=== PATIENT | female | born 1960 | race Caucasian/White ===

== ENCOUNTER → 2017-03-28 | Outpatient (CLI) | payer MEDICARE ==
[~2017-03-28] MED LIST: ADVAIR 250/501 EA INH; BACTRIM DS 8001 TA1 PO; BISOPROLOL FUMA1 TA3 PO; BISOPROLOL5 MG PO; CEFUROXIME AXE250 MG PO; CIPRO500 MG PO; CLOPIDOGREL75 MG PO; FLEXERIL10 MG PO; FLOMAX0.4 MG PO; FLUTICASON0.05 MG/A1 NAS; GABAPENTIN300 MG PO; MEDROL DOSEPAK4 MG PO; METFORMIN500 MG PO; NIX CREME RINSE60 M1 PO; OYSTER SHELL C500 M2 PO; PERCOCET 325 MG1 TA2 PO; PRAVACHOL40 MG PO; PREDNISONE50 MG PO; PYRIDIUM100 MG PO; PYRIDIUM200 M1 PO; ULTRAM50 MG PO; VENTOLIN H0.09 MG/AC INH; VITAMIN D3 PO; VITAMIN D400 I1 PO; WELLBUTRIN SR150 MG PO; ZOFRAN ODT4 MG SL
== END | disposition home or self-care (01) ==
LOC: CP 11:00
DX: I69.30 Unspecified sequelae of cerebral infarction (principal)

== ENCOUNTER 2017-04-24 17:15 | Emergency (ER) | payer MEDICARE ==
[~2017-04-24] VITALS: Wt 122.5 kg
[2017-04-24 17:59] LABS: BILIRUBIN NEGATIVE (NEGATIVE); BLOOD 3+ (NEGATIVE); CLARITY SL CLOUDY (CLEAR); COLOR YELLOW (YELLOW); GLUCOSE NEGATIVE (NEGATIVE); KETONE NEGATIVE (NEGATIVE); LEUKO ESTERASE 1+ (NEGATIVE); NITRITE NEGATIVE (NEGATIVE); PROTEIN NEGATIVE (NEGATIVE); SPECIFIC GRAVITY 1.025 (1.005-1.030); UROBILINOGEN 0.2 E.U./dl (0.2-1.0)
[2017-04-24 18:05] LABS: BASO # 0.1 10*3/uL (0.0-0.1); BASO % 0.4 % (0.0-1.0); EOS # 0.1 10*3/uL (0.0-0.4); EOS % 0.7 % (1.0-4.0); HEMATOCRIT 44.1 % (37.0-47.0); HEMOGLOBIN 13.7 g/dl (12.0-16.0); IG # 0.1 10*3/uL (0.0-0.1); LYMPH # 1.9 10*3/uL (1.3-4.4); LYMPH % 11.7 % (27.0-41.0); MEAN CELL VOLUME 88.6 fl (81.0-99.0); MEAN CORPUSCULAR HGB 27.5 pg (27.0-31.0); MEAN CORPUSCULAR HGB CONC 31.1 g/dl (33.0-37.0); MEAN PLATELET VOLUME 10.2 fl (9.6-12.3); MONO # 1.2 10*3/uL (0.1-1.0); MONO % 7.5 % (3.0-9.0); NEUT # 12.6 10*3/uL (2.3-7.9); NEUT % 79.4 % (47.0-73.0); PLATELET COUNT AUTOMATED 470 10*3/uL (130-400); RED BLOOD COUNT 4.98 10*6/uL (4.10-5.10); RED CELL DISTRI WIDTH 15.7 % (0-14.5); WHITE BLOOD COUNT 15.8 10*3/uL (4.8-10.8)
[2017-04-24 18:05] LABS: BACTERIA 4+; RBC 21-30 rbc/hpf (0-2); URINE REFLEX COMMENT YES (NO)
[2017-04-24 18:19] LABS: ALBUMIN 3.1 gm/dl (3.1-4.5); BILIRUBIN, TOTAL 0.3 mg/dl (0.2-1.0); POTASSIUM 4.1 mmol/L (3.5-5.1); TOTAL PROTEIN 7.1 gm/dL (6.4-8.2)
[2017-04-24] MEDS ORDERED: LEVOFLOXACIN500 MG PO (19:41)
[2017-04-24] MEDS ORDERED: ZOFRAN ODT4 MG SL (19:41)
[2017-04-24] MEDS ORDERED: FLOMAX0.4 MG PO (19:41)
[2017-04-24] MEDS ORDERED: PERCOCET 325 MG1 TA2 PO (19:41)
== END 2017-04-24 19:57 | disposition home or self-care (01) ==
LOC: ED 17:15
PROVIDERS: Registered Nurse
DX: N20.0 Calculus of kidney (principal); Z87.442 Personal history of urinary calculi; F17.200 Nicotine dependence, unspecified, uncomplicated; Z90.49 Acquired absence of other specified parts of digestive tract

== ENCOUNTER → 2017-05-10 | Outpatient (CLI) | payer MEDICARE ==
[~2017-05-10] MED LIST changes: +LEVOFLOXACIN500 MG PO
== END | disposition home or self-care (01) ==
LOC: RAD 10:15
DX: N20.0 Calculus of kidney (principal); Z96.0 Presence of urogenital implants; Z90.49 Acquired absence of other specified parts of digestive tract; Z90.89 Acquired absence of other organs; Z90.710 Acquired absence of both cervix and uterus

== ENCOUNTER → 2017-05-24 | Outpatient (CLI) | payer MEDICARE ==
[2017-05-24 12:58] LABS: BILIRUBIN 2+ (NEGATIVE); BLOOD 3+ (NEGATIVE); CLARITY CLOUDY (CLEAR); COLOR BROWN (YELLOW); GLUCOSE NEGATIVE (NEGATIVE); KETONE TRACE (NEGATIVE); NITRITE POSITIVE (NEGATIVE); PH 6.5 (5.0-9.0); PROTEIN 3+ (NEGATIVE); SPECIFIC GRAVITY >= 1.030 (1.005-1.030)
[2017-05-24 13:06] LABS: RBC TNTC rbc/hpf (0-2)
[2017-05-24 13:08] LABS: BACTERIA 1+; CALCIUM OXALATE CRYSTALS 1+; WBC 16-20 wbc/hpf (0-5)
[2017-05-24 13:09] LABS: LEUKO ESTERASE 1+ (NEGATIVE)
[2017-05-24 13:14] LABS: BASO # 0.1 10*3/uL (0.0-0.1); BASO % 0.7 % (0.0-1.0); EOS # 0.3 10*3/uL (0.0-0.4); EOS % 2.7 % (1.0-4.0); HEMATOCRIT 40.7 % (37.0-47.0); HEMOGLOBIN 12.8 g/dl (12.0-16.0); IG # 0.1 10*3/uL (0.0-0.1); LYMPH # 2.6 10*3/uL (1.3-4.4); LYMPH % 22.8 % (27.0-41.0); MEAN CELL VOLUME 87.7 fl (81.0-99.0); MEAN CORPUSCULAR HGB 27.6 pg (27.0-31.0); MEAN CORPUSCULAR HGB CONC 31.4 g/dl (33.0-37.0); MEAN PLATELET VOLUME 10.4 fl (9.6-12.3); MONO # 0.6 10*3/uL (0.1-1.0); MONO % 4.8 % (3.0-9.0); NEUT # 7.8 10*3/uL (2.3-7.9); NEUT % 68.5 % (47.0-73.0); PLATELET COUNT AUTOMATED 465 10*3/uL (130-400); RED BLOOD COUNT 4.64 10*6/uL (4.10-5.10); RED CELL DISTRI WIDTH 15.1 % (0-14.5); WHITE BLOOD COUNT 11.4 10*3/uL (4.8-10.8)
[2017-05-24 13:42] LABS: ALBUMIN 3.2 gm/dl (3.1-4.5); ALKALINE PHOSPHATASE 116 U/L (45-117); BILIRUBIN, TOTAL 0.3 mg/dl (0.2-1.0); BUN 10 mg/dl (7-24); CARBON DIOXIDE 28 mmol/L (21-32); CHLORIDE 106 mmol/L (98-107); EST GLOM FILT AFRICAN AMERICAN > 60 ml/min; GLUCOSE 182 mg/dL (65-99); POTASSIUM 4.3 mmol/L (3.5-5.1); SGOT/AST 9 IU/L (3-35); SGPT/ALT 23 U/L (12-78); SODIUM 141 mmol/L (136-145); THYROXINE (T4) TOTAL 11.5 ug/dl (4.8-13.9); TOTAL PROTEIN 7.4 gm/dL (6.4-8.2)
[2017-05-24 13:44] LABS: FREE THYROXIN INDEX/T7 3.3 (1.5-5.4); T3 UPTAKE 29 % (31-39)
== END | disposition home or self-care (01) ==
LOC: LAB 12:27
PROVIDERS: Urology
DX: N20.0 Calculus of kidney (principal); R53.83 Other fatigue; R79.89 Other specified abnormal findings of blood chemistry

== ENCOUNTER → 2017-06-14 | Outpatient (CLI) | payer MEDICARE | END | disposition home or self-care (01) | LOC: LAB 11:31 | PROVIDERS: Urology | DX: N20.0 Calculus of kidney (principal); R53.83 Other fatigue ==

== ENCOUNTER → 2017-06-16 | Outpatient (CLI) | payer MEDICARE | END | disposition home or self-care (01) | LOC: CT 05-26 13:00 | DX: N20.0 Calculus of kidney (principal); K76.0 Fatty (change of) liver, not elsewhere classified; Z90.710 Acquired absence of both cervix and uterus; Z90.49 Acquired absence of other specified parts of digestive tract ==

== ENCOUNTER → 2017-11-15 | Outpatient (CLI) | payer MEDICARE ==
[~2017-11-15] MED LIST changes: +MYRBETRIQ25 M1 PO; +VESICARE5 MG PO
[2017-11-15 15:32] LABS: BILIRUBIN NEGATIVE (NEGATIVE); BLOOD TRACE-INTACT (NEGATIVE); CLARITY SL CLOUDY (CLEAR); COLOR YELLOW (YELLOW); GLUCOSE 3+ (NEGATIVE); KETONE NEGATIVE (NEGATIVE); LEUKO ESTERASE NEGATIVE (NEGATIVE); NITRITE NEGATIVE (NEGATIVE); SPECIFIC GRAVITY <= 1.005 (1.005-1.030); UROBILINOGEN 0.2 E.U./dl (0.2-1.0)
[2017-11-15 15:41] LABS: BACTERIA TRACE; EPITHELIAL CELLS 15-20; WBC 0-2 wbc/hpf (0-5)
== END | disposition home or self-care (01) ==
LOC: LAB 14:42 → CT 15:00
PROVIDERS: Urology
DX: N20.0 Calculus of kidney (principal); Z90.49 Acquired absence of other specified parts of digestive tract; Z90.710 Acquired absence of both cervix and uterus

== ENCOUNTER 2017-11-19 21:23 | Emergency (ER) | payer MEDICARE ==
[~2017-11-19] VITALS: Ht 162.5 cm; Wt 131.5 kg
--- NOTE | ~2017-11-19 | EKG ---
[place], [place] ELECTROCARDIOGRAM REPORT NAME: DANNIELLE BURNETT UNIT #: [id number] ROOM: DOCTOR: ROBBIE MEZA MD BIRTHDATE: [birth year] DOS: 11/19/2017 TIME: 2155 hours. Normal sinus rhythm at 70 beats per minute. The tracing is normal. No previous tracing is available for comparison. ROBBIE MEZA MD CM:EKGRPT:ELECTROCARDIOGRAM REPORT [id number] ROBBIE MEZA MD
[~2017-11-19 21:23] MED LIST changes: -MYRBETRIQ25 M1 PO; -VESICARE5 MG PO
[2017-11-19] MEDS ORDERED: MYRBETRIQ25 M1 PO (21:36)
[2017-11-19] MEDS ORDERED: VESICARE5 MG PO (21:36)
[2017-11-19 22:16] LABS: BASO # 0.1 10*3/uL (0.0-0.1); EOS # 0.2 10*3/uL (0.0-0.4); EOS % 1.7 % (1.0-4.0); HEMATOCRIT 45.3 % (37.0-47.0); HEMOGLOBIN 14.5 g/dl (12.0-16.0); LYMPH # 2.6 10*3/uL (1.3-4.4); LYMPH % 28.8 % (27.0-41.0); MEAN CELL VOLUME 84.4 fl (81.0-99.0); MEAN PLATELET VOLUME 11.6 fl (9.6-12.3); MONO # 0.4 10*3/uL (0.1-1.0); MONO % 4.8 % (3.0-9.0); NEUT # 5.7 10*3/uL (2.3-7.9); NEUT % 63.5 % (47.0-73.0); PLATELET COUNT AUTOMATED 445 10*3/uL (130-400); RED BLOOD COUNT 5.37 10*6/uL (4.10-5.10)
[2017-11-19 22:32] LABS: ACT PARTIAL THROMBO TIME 23.3 SECONDS (20.8-31.5); ALBUMIN 3.2 gm/dl (3.1-4.5); ALKALINE PHOSPHATASE 165 U/L (45-117); BUN 13 mg/dl (7-24); CHLORIDE 100 mmol/L (98-107); CREATININE 0.98 mg/dL (0.55-1.02); POTASSIUM 3.8 mmol/L (3.5-5.1); SGOT/AST 14 IU/L (3-35); SGPT/ALT 34 U/L (12-78); SODIUM 137 mmol/L (136-145); TOTAL PROTEIN 6.8 gm/dL (6.4-8.2)
[2017-11-19 22:37] LABS: TROPONIN I < 0.015 ng/ml (<0.045)
== END 2017-11-20 01:17 | disposition short-term general hospital (02) ==
LOC: ED 21:23
PROVIDERS: Student in an Organized Health Care Education/Training Program
DX: I63.9 Cerebral infarction, unspecified (principal); F17.200 Nicotine dependence, unspecified, uncomplicated; Z90.49 Acquired absence of other specified parts of digestive tract; Z90.710 Acquired absence of both cervix and uterus; Z98.890 Other specified postprocedural states; Z87.442 Personal history of urinary calculi; Z79.899 Other long term (current) drug therapy

== ENCOUNTER → 2018-01-31 | Outpatient (CLI) | payer MEDICARE ==
[~2018-01-31] MED LIST changes: +MYRBETRIQ25 M1 PO; +VESICARE5 MG PO
[2018-01-31 09:53] LABS: HEMATOCRIT 43.7 % (37.0-47.0); HEMOGLOBIN 13.5 g/dl (12.0-16.0); MEAN CELL VOLUME 87.9 fl (81.0-99.0); MEAN CORPUSCULAR HGB 27.2 pg (27.0-31.0); MEAN CORPUSCULAR HGB CONC 30.9 g/dl (33.0-37.0); MEAN PLATELET VOLUME 10.4 fl (9.6-12.3); RED BLOOD COUNT 4.97 10*6/uL (4.10-5.10); RED CELL DISTRI WIDTH 14.2 % (0-14.5); WHITE BLOOD COUNT 9.8 10*3/uL (4.8-10.8)
[2018-01-31 10:24] LABS: ALBUMIN 3.2 gm/dl (3.1-4.5); ALKALINE PHOSPHATASE 140 U/L (45-117); BUN 12 mg/dl (7-24); CHLORIDE 109 mmol/L (98-107); CHOLESTEROL 153 mg/dL (<200); HDL CHOLESTEROL 44 mg/dl (40-60); LDL CHOLESTEROL 82 mg/dL (9-159); SGOT/AST 11 IU/L (3-35); SGPT/ALT 24 U/L (12-78); SODIUM 142 mmol/L (136-145); TOTAL PROTEIN 7.3 gm/dL (6.4-8.2); TRIGLYCERIDES 136 mg/dl (<150); VLDL CHOLESTEROL 27 mg/dL (6-40)
== END | disposition home or self-care (01) ==
LOC: LAB 09:11
PROVIDERS: Registered Nurse Flight
DX: E78.5 Hyperlipidemia, unspecified (principal); E11.65 Type 2 diabetes mellitus with hyperglycemia

== ENCOUNTER → 2018-02-17 | Outpatient (CLI) | payer MEDICARE | END | disposition home or self-care (01) | LOC: US 09:26 | DX: I65.23 Occlusion and stenosis of bilateral carotid arteries (principal) ==

== ENCOUNTER 2018-08-05 21:05 | Emergency (ER) | payer MEDICARE ==
[~2018-08-05] VITALS: Ht 162.5 cm; Wt 129.3 kg
--- NOTE | ~2018-08-05 | EKG ---
[place], [place] ELECTROCARDIOGRAM REPORT NAME: DANNIELLE BURNETT UNIT #: [id number] ROOM: DOCTOR: EPIPHANY DRAFT REPORT BIRTHDATE: [birth year] [facility] Test Date: 2018-08-05 Test Time: 21:29:31 Pat Name: DANNIELLE BURNETT Department: ER Room: Gender: F Pen Tester: Guido Voss : 1960 Requested By: AMELIA ROTH Order Number: [id number] Reading MD: Gregg Johnson MD Measurements Intervals [place] Rate: 87 P: 69 NC: 148 QRS: 48 QRSD: 85 T: 69 QT: 372 QTc: 448 Interpretive Statements Sinus rhythm Baseline wander in lead(s) V5 Electronically Signed On 08-07-2018 14:47:54 PDT by Gregg Johnson MD CM:EKGRPT:ELECTROCARDIOGRAM REPORT [id number] AMELIA HEWITT DRAFT REPORT AMELIA ROTH DO
[2018-08-05 21:40] LABS: BASO # 0.1 10*3/uL (0.0-0.1); BASO % 0.8 % (0.0-1.0); EOS # 0.3 10*3/uL (0.0-0.4); EOS % 2.2 % (1.0-4.0); HEMOGLOBIN 13.6 g/dl (12.0-16.0); LYMPH # 2.9 10*3/uL (1.3-4.4); LYMPH % 24.2 % (27.0-41.0); MEAN CELL VOLUME 85.8 fl (81.0-99.0); MEAN CORPUSCULAR HGB 27.1 pg (27.0-31.0); MEAN CORPUSCULAR HGB CONC 31.6 g/dl (33.0-37.0); MEAN PLATELET VOLUME 9.7 fl (9.6-12.3); MONO # 0.5 10*3/uL (0.1-1.0); MONO % 4.4 % (3.0-9.0); PLATELET COUNT AUTOMATED 608 10*3/uL (130-400); RED BLOOD COUNT 5.01 10*6/uL (4.10-5.10); RED CELL DISTRI WIDTH 17.4 % (0-14.5); WHITE BLOOD COUNT 11.8 10*3/uL (4.8-10.8)
[2018-08-05 21:50] LABS: ACT PARTIAL THROMBO TIME 25.8 SECONDS (20.8-31.5); INTERNATIONAL NORM RATIO 0.9 (2.0-3.5)
[2018-08-05 21:55] LABS: ALBUMIN 3.2 gm/dl (3.1-4.5); ALKALINE PHOSPHATASE 138 U/L (45-117); BUN 9 mg/dl (7-24); CHLORIDE 111 mmol/L (98-107); CREATININE 1.03 mg/dL (0.55-1.02); POTASSIUM 3.3 mmol/L (3.5-5.1); SGOT/AST 3 IU/L (3-35); SGPT/ALT 17 U/L (12-78); SODIUM 146 mmol/L (136-145); TOTAL PROTEIN 7.5 gm/dL (6.4-8.2)
[2018-08-05 21:57] LABS: TROPONIN I < 0.015 ng/ml (<0.045)
== END 2018-08-05 23:18 ==
LOC: ED 21:05
PROVIDERS: Student in an Organized Health Care Education/Training Program
DX: R53.1 Weakness (principal); R20.0 Anesthesia of skin; R26.2 Difficulty in walking, not elsewhere classified; Z79.84 Long term (current) use of oral hypoglycemic drugs; Z79.899 Other long term (current) drug therapy; Z87.442 Personal history of urinary calculi; Z86.73 Personal history of transient ischemic attack (TIA), and cerebral infarction without residual deficits; Z90.710 Acquired absence of both cervix and uterus; Z90.49 Acquired absence of other specified parts of digestive tract

== ENCOUNTER → 2019-02-19 | Outpatient (CLI) | payer OTHER ==
[~2019-02-19] MED LIST changes: +ASPIRIN81 M1 PO; +CILOSTAZOL100 MG PO; -GABAPENTIN300 MG PO; +LABETALOL HCL100 MG PO; +LANTUS SOL100 UNIT/1 SQ; +LIPITOR40 MG PO; +NEURONTIN300 MG PO; +NORVASC10 MG PO; +Zestril,Prinivi40 MG PO
[2019-02-19 10:14] LABS: BILIRUBIN NEGATIVE (NEGATIVE); BLOOD TRACE-INTACT (NEGATIVE); CLARITY CLOUDY (CLEAR); COLOR YELLOW (YELLOW); GLUCOSE NEGATIVE (NEGATIVE); KETONE NEGATIVE (NEGATIVE); LEUKO ESTERASE 1+ (NEGATIVE); NITRITE POSITIVE (NEGATIVE); SPECIFIC GRAVITY 1.025 (1.005-1.030); UROBILINOGEN 0.2 E.U./dl (0.2-1.0)
[2019-02-19 10:18] LABS: HEMATOCRIT 40.2 % (37.0-47.0); HEMOGLOBIN 11.9 g/dl (12.0-16.0); MEAN CELL VOLUME 80.7 fl (81.0-99.0); MEAN CORPUSCULAR HGB 23.9 pg (27.0-31.0); MEAN CORPUSCULAR HGB CONC 29.6 g/dl (33.0-37.0); MEAN PLATELET VOLUME 10.5 fl (9.6-12.3); RED BLOOD COUNT 4.98 10*6/uL (4.10-5.10); RED CELL DISTRI WIDTH 15.7 % (0-14.5); WHITE BLOOD COUNT 9.7 10*3/uL (4.8-10.8)
[2019-02-19 10:44] LABS: BACTERIA 3+; WBC TNTC wbc/hpf (0-5)
[2019-02-19 10:46] LABS: ALBUMIN 3.2 gm/dl (3.1-4.5); BUN 10 mg/dl (7-24); CHLORIDE 105 mmol/L (98-107); CHOLESTEROL 215 mg/dL (<200); CREATININE 0.86 mg/dL (0.55-1.02); POTASSIUM 3.5 mmol/L (3.5-5.1); SGOT/AST 14 IU/L (3-35); SGPT/ALT 25 U/L (12-78); SODIUM 141 mmol/L (136-145); TOTAL PROTEIN 7.3 gm/dL (6.4-8.2); TRIGLYCERIDES 169 mg/dl (<150); VLDL CHOLESTEROL 34 mg/dL (6-40)
[2019-02-19 10:48] LABS: ALKALINE PHOSPHATASE 128 U/L (45-117); HDL CHOLESTEROL 39 mg/dl (40-60); LDL CHOLESTEROL 142 mg/dL (9-159)
== END | disposition home or self-care (01) ==
LOC: LAB 09:13
PROVIDERS: Registered Nurse Flight
DX: E11.65 Type 2 diabetes mellitus with hyperglycemia (principal); I77.9 Disorder of arteries and arterioles, unspecified; R31.9 Hematuria, unspecified

== ENCOUNTER → 2019-08-09 | Outpatient (CLI) | payer OTHER ==
[2019-08-09 10:36] LABS: HEMATOCRIT 42.4 % (37.0-47.0); HEMOGLOBIN 12.7 g/dl (12.0-16.0); MEAN CELL VOLUME 83.6 fl (81.0-99.0); MEAN PLATELET VOLUME 10.9 fl (9.6-12.3); RED BLOOD COUNT 5.07 10*6/uL (4.10-5.10); RED CELL DISTRI WIDTH 16.8 % (0-14.5); WHITE BLOOD COUNT 10.3 10*3/uL (4.8-10.8)
[2019-08-09 10:48] LABS: ALKALINE PHOSPHATASE 120 U/L (45-117); BUN 11 mg/dl (7-24); CHLORIDE 109 mmol/L (98-107); CHOLESTEROL 184 mg/dL (<200); CREATININE 0.82 mg/dL (0.55-1.02); HDL CHOLESTEROL 35 mg/dl (40-60); LDL CHOLESTEROL 118 mg/dL (9-159); POTASSIUM 3.7 mmol/L (3.5-5.1); SGOT/AST 10 IU/L (3-35); SGPT/ALT 22 U/L (12-78); SODIUM 141 mmol/L (136-145); TOTAL PROTEIN 7.1 gm/dL (6.4-8.2); TRIGLYCERIDES 156 mg/dl (<150); VLDL CHOLESTEROL 31 mg/dL (6-40)
== END | disposition home or self-care (01) ==
LOC: LAB 09:55
PROVIDERS: Registered Nurse Flight
DX: E11.65 Type 2 diabetes mellitus with hyperglycemia (principal); I10 Essential (primary) hypertension; E78.5 Hyperlipidemia, unspecified; E55.9 Vitamin D deficiency, unspecified; Z79.899 Other long term (current) drug therapy; Z95.1 Presence of aortocoronary bypass graft

== ENCOUNTER 2019-10-03 18:17 | Emergency (ER) | payer OTHER ==
[~2019-10-03] VITALS: Ht 162.5 cm; Wt 123.4 kg
[2019-10-03 18:52] LABS: BILIRUBIN NEGATIVE (NEGATIVE); BLOOD 1+ (NEGATIVE); CLARITY CLEAR (CLEAR); COLOR YELLOW (YELLOW); GLUCOSE NEGATIVE (NEGATIVE); KETONE NEGATIVE (NEGATIVE); LEUKO ESTERASE TRACE (NEGATIVE); NITRITE POSITIVE (NEGATIVE); SPECIFIC GRAVITY >= 1.030 (1.005-1.030); UROBILINOGEN 0.2 E.U./dl (0.2-1.0)
[2019-10-03 18:59] LABS: BACTERIA 2+; MUCOUS 1+
[2019-10-03 19:02] LABS: BASO # 0.1 10*3/uL (0.0-0.1); BASO % 0.6 % (0.0-1.0); EOS # 0.2 10*3/uL (0.0-0.4); EOS % 1.1 % (1.0-4.0); HEMATOCRIT 44.5 % (37.0-47.0); HEMOGLOBIN 13.4 g/dl (12.0-16.0); LYMPH # 1.9 10*3/uL (1.3-4.4); LYMPH % 12.5 % (27.0-41.0); MEAN CELL VOLUME 81.7 fl (81.0-99.0); MEAN CORPUSCULAR HGB 24.6 pg (27.0-31.0); MEAN CORPUSCULAR HGB CONC 30.1 g/dl (33.0-37.0); MEAN PLATELET VOLUME 10.8 fl (9.6-12.3); MONO # 0.8 10*3/uL (0.1-1.0); MONO % 4.9 % (3.0-9.0); NEUT # 12.3 10*3/uL (2.3-7.9); NEUT % 80.4 % (47.0-73.0); PLATELET COUNT AUTOMATED 714 10*3/uL (130-400); RED BLOOD COUNT 5.45 10*6/uL (4.10-5.10); RED CELL DISTRI WIDTH 16.7 % (0-14.5); WHITE BLOOD COUNT 15.3 10*3/uL (4.8-10.8)
[2019-10-03 19:15] LABS: ALKALINE PHOSPHATASE 129 U/L (45-117); BUN 8 mg/dl (7-24); CHLORIDE 109 mmol/L (98-107); CREATININE 0.89 mg/dL (0.55-1.02); LIPASE 75 U/L (73-393); SGOT/AST 11 IU/L (3-35); SGPT/ALT 18 U/L (12-78); SODIUM 141 mmol/L (136-145); TOTAL PROTEIN 7.1 gm/dL (6.4-8.2)
== END 2019-10-03 21:22 | disposition short-term general hospital (02) ==
LOC: ED 18:17
PROVIDERS: Physician Assistant
DX: A41.9 Sepsis, unspecified organism (principal); N13.2 Hydronephrosis with renal and ureteral calculous obstruction; N12 Tubulo-interstitial nephritis, not specified as acute or chronic; Z79.899 Other long term (current) drug therapy; Z79.82 Long term (current) use of aspirin; Z79.4 Long term (current) use of insulin

== ENCOUNTER → 2019-11-06 | Outpatient (CLI) | payer OTHER ==
[2019-11-06 09:01] LABS: BASO # 0.1 10*3/uL (0.0-0.1); BASO % 0.8 % (0.0-1.0); EOS # 0.4 10*3/uL (0.0-0.4); EOS % 3.2 % (1.0-4.0); HEMATOCRIT 43.2 % (37.0-47.0); HEMOGLOBIN 12.7 g/dl (12.0-16.0); LYMPH # 2.1 10*3/uL (1.3-4.4); MEAN CELL VOLUME 81.5 fl (81.0-99.0); MEAN CORPUSCULAR HGB CONC 29.4 g/dl (33.0-37.0); MEAN PLATELET VOLUME 11.1 fl (9.6-12.3); MONO # 0.6 10*3/uL (0.1-1.0); MONO % 5.4 % (3.0-9.0); NEUT # 8.3 10*3/uL (2.3-7.9); PLATELET COUNT AUTOMATED 707 10*3/uL (130-400); RED CELL DISTRI WIDTH 17.4 % (0-14.5); RETICULOCYTE % 1.31 % (0.50-2.50); WHITE BLOOD COUNT 11.5 10*3/uL (4.8-10.8)
[2019-11-06 09:22] LABS: ALBUMIN 3.1 gm/dl (3.1-4.5); ALKALINE PHOSPHATASE 128 U/L (45-117); BUN 9 mg/dl (7-24); CHLORIDE 110 mmol/L (98-107); CREATININE 0.95 mg/dL (0.55-1.02); IRON 45 ug/dL (50-170); LDH 163 U/L (84-246); POTASSIUM 3.8 mmol/L (3.5-5.1); SGOT/AST 8 IU/L (3-35); SGPT/ALT 21 U/L (12-78); SODIUM 142 mmol/L (136-145); TOTAL IRON BINDING CAPACITY 316 ug/dl (250-450); TOTAL PROTEIN 7.1 gm/dL (6.4-8.2)
[2019-11-06 10:51] LABS: FERRITIN 71.4 ng/mL (10.0-291.0)
[2019-11-07 05:02] LABS: TOTAL PROTEIN, SERUM 6.6 g/dL (6.0-8.5)
[2019-11-07 14:08] LABS: ERYTHROPOIETIN 140277 21.8 mIU/mL (2.6-18.5)
[2019-11-07 16:05] LABS: A/G RATIO 0.9 (0.7-1.7); ALBUMIN 3.2 g/dL (2.9-4.4); ALPHA-1-GLOBULIN 0.3 g/dL (0.0-0.4); BETA GLOBULIN 1.1 g/dL (0.7-1.3); FREE KAPPA LIGHT CHAINS 25.7 mg/L (3.3-19.4); FREE LAMBDA LIGHT CHAINS 18.8 mg/L (5.7-26.3); GLOBULIN, TOTAL 3.4 g/dL (2.2-3.9); KAPPA/LAMBDA RATIO 1.37 (0.26-1.65); M-SPIKE Not Observed g/dL (Not Observed)
== END | disposition home or self-care (01) ==
LOC: LAB 08:24
PROVIDERS: Internal Medicine Hematology & Oncology
DX: N20.0 Calculus of kidney (principal); R79.89 Other specified abnormal findings of blood chemistry; D47.3 Essential (hemorrhagic) thrombocythemia; D64.9 Anemia, unspecified; Z90.710 Acquired absence of both cervix and uterus

== ENCOUNTER 2019-11-14 14:09 | Emergency (ER) | payer OTHER ==
[~2019-11-14] VITALS: Ht 162.5 cm; Wt 78.0 kg
[2019-11-14 15:54] LABS: BASO # 0.1 10*3/uL (0.0-0.1); BASO % 0.5 % (0.0-1.0); EOS # 0.1 10*3/uL (0.0-0.4); EOS % 1.1 % (1.0-4.0); HEMATOCRIT 41.7 % (37.0-47.0); HEMOGLOBIN 12.6 g/dl (12.0-16.0); LYMPH # 1.9 10*3/uL (1.3-4.4); MEAN CELL VOLUME 79.4 fl (81.0-99.0); MEAN CORPUSCULAR HGB CONC 30.2 g/dl (33.0-37.0); MEAN PLATELET VOLUME 10.7 fl (9.6-12.3); MONO # 1.1 10*3/uL (0.1-1.0); MONO % 8.8 % (3.0-9.0); NEUT # 8.8 10*3/uL (2.3-7.9); NEUT % 72.9 % (47.0-73.0); PLATELET COUNT AUTOMATED 613 10*3/uL (130-400); RED BLOOD COUNT 5.25 10*6/uL (4.10-5.10); RED CELL DISTRI WIDTH 17.6 % (0-14.5)
[2019-11-14 16:18] LABS: ALKALINE PHOSPHATASE 117 U/L (45-117); BUN 9 mg/dl (7-24); CHLORIDE 104 mmol/L (98-107); CREATININE 0.97 mg/dL (0.55-1.02); LIPASE 58 U/L (73-393); POTASSIUM 3.5 mmol/L (3.5-5.1); SGOT/AST 7 IU/L (3-35); SGPT/ALT 17 U/L (12-78); SODIUM 137 mmol/L (136-145); TOTAL PROTEIN 7.1 gm/dL (6.4-8.2)
[2019-11-14 16:22] LABS: COLOR YELLOW (YELLOW)
[2019-11-14 16:23] LABS: BILIRUBIN NEGATIVE (NEGATIVE); CLARITY SL CLOUDY (CLEAR); GLUCOSE NEGATIVE (NEGATIVE); KETONE NEGATIVE (NEGATIVE)
[2019-11-14 16:24] LABS: BLOOD 3+ (NEGATIVE); LEUKO ESTERASE 2+ (NEGATIVE); NITRITE NEGATIVE (NEGATIVE); PH 7.5 (5.0-9.0); UROBILINOGEN 0.2 E.U./dl (0.2-1.0)
[2019-11-14 16:26] LABS: EPITHELIAL CELLS 16-20
[2019-11-14 16:27] LABS: RBC 21-30 rbc/hpf (0-2); WBC 41-50 wbc/hpf (0-5)
[2019-11-14 16:28] LABS: BACTERIA TRACE; CALCIUM OXALATE CRYSTALS 1+; YEAST TRACE
[2019-11-14] MEDS ORDERED: SEPTDS PO (17:59)
[2019-11-14] MEDS ORDERED: PYRIDIUM200 M1 PO (17:59)
[2019-11-14] MEDS ORDERED: CEPHALEXIN500 M1 PO (18:10)
== END 2019-11-14 18:25 | disposition home or self-care (01) ==
LOC: ED 14:09
PROVIDERS: Physician Assistant
DX: N39.0 Urinary tract infection, site not specified (principal); J44.9 Chronic obstructive pulmonary disease, unspecified; I10 Essential (primary) hypertension; E78.00 Pure hypercholesterolemia, unspecified; F17.200 Nicotine dependence, unspecified, uncomplicated; Z79.899 Other long term (current) drug therapy; Z79.4 Long term (current) use of insulin; Z79.82 Long term (current) use of aspirin; Z90.710 Acquired absence of both cervix and uterus; Z90.49 Acquired absence of other specified parts of digestive tract; Z86.73 Personal history of transient ischemic attack (TIA), and cerebral infarction without residual deficits; Z87.442 Personal history of urinary calculi

== ENCOUNTER → 2019-12-19 | Outpatient (CLI) | payer OTHER ==
[~2019-12-19] MED LIST changes: +CEPHALEXIN500 M1 PO; +SEPTDS PO
[2019-12-19 14:54] LABS: BASO # 0.1 10*3/uL (0.0-0.1); BASO % 0.6 % (0.0-1.0); EOS # 0.2 10*3/uL (0.0-0.4); EOS % 1.7 % (1.0-4.0); HEMATOCRIT 43.3 % (37.0-47.0); HEMOGLOBIN 13.1 g/dl (12.0-16.0); LYMPH # 2.4 10*3/uL (1.3-4.4); LYMPH % 24.9 % (27.0-41.0); MEAN CELL VOLUME 82.5 fl (81.0-99.0); MEAN CORPUSCULAR HGB CONC 30.3 g/dl (33.0-37.0); MEAN PLATELET VOLUME 11.1 fl (9.6-12.3); MONO # 0.5 10*3/uL (0.1-1.0); MONO % 5.2 % (3.0-9.0); NEUT # 6.5 10*3/uL (2.3-7.9); NEUT % 67.3 % (47.0-73.0); PLATELET COUNT AUTOMATED 669 10*3/uL (130-400); RED BLOOD COUNT 5.25 10*6/uL (4.10-5.10); RED CELL DISTRI WIDTH 19.4 % (0-14.5); WHITE BLOOD COUNT 9.6 10*3/uL (4.8-10.8)
[2019-12-19 15:05] LABS: BILIRUBIN NEGATIVE (NEGATIVE); BLOOD 2+ (NEGATIVE); CLARITY SL CLOUDY (CLEAR); COLOR YELLOW (YELLOW); GLUCOSE NEGATIVE (NEGATIVE); KETONE NEGATIVE (NEGATIVE); LEUKO ESTERASE 1+ (NEGATIVE); NITRITE NEGATIVE (NEGATIVE); PH 6.5 (5.0-9.0); UROBILINOGEN 0.2 E.U./dl (0.2-1.0)
[2019-12-19 15:06] LABS: WBC 51-100 wbc/hpf (0-5)
[2019-12-19 15:07] LABS: BACTERIA 2+; EPITHELIAL CELLS TNTC; MUCOUS 1+
[2019-12-19 15:24] LABS: ALBUMIN 3.2 gm/dl (3.1-4.5); ALKALINE PHOSPHATASE 129 U/L (45-117); BUN 8 mg/dl (7-24); CHLORIDE 108 mmol/L (98-107); CREATININE 0.79 mg/dL (0.55-1.02); SGOT/AST 11 IU/L (3-35); SGPT/ALT 20 U/L (12-78); SODIUM 143 mmol/L (136-145); T3 UPTAKE 34 % (31-39); THYROXINE (T4) TOTAL 13.2 ug/dl (4.8-13.9); TOTAL PROTEIN 7.2 gm/dL (6.4-8.2)
== END | disposition home or self-care (01) ==
LOC: LAB 13:43
PROVIDERS: Nurse Practitioner Family
DX: N20.0 Calculus of kidney (principal); I10 Essential (primary) hypertension

== ENCOUNTER → 2020-01-05 | Outpatient (CLI) | payer OTHER | END | disposition home or self-care (01) | LOC: LAB 08:00 | PROVIDERS: Nurse Practitioner Family | DX: I10 Essential (primary) hypertension (principal); N20.0 Calculus of kidney ==

== ENCOUNTER → 2020-01-06 | Outpatient (CLI) | payer OTHER ==
[2020-01-06 12:16] LABS: BASO # 0.1 10*3/uL (0.0-0.1); BASO % 0.9 % (0.0-1.0); EOS # 0.2 10*3/uL (0.0-0.4); EOS % 2.4 % (1.0-4.0); HEMATOCRIT 44.4 % (37.0-47.0); HEMOGLOBIN 13.3 g/dl (12.0-16.0); LYMPH # 2.1 10*3/uL (1.3-4.4); LYMPH % 20.4 % (27.0-41.0); MEAN CORPUSCULAR HGB 24.9 pg (27.0-31.0); MEAN PLATELET VOLUME 10.6 fl (9.6-12.3); MONO # 0.4 10*3/uL (0.1-1.0); MONO % 4.1 % (3.0-9.0); NEUT # 7.2 10*3/uL (2.3-7.9); NEUT % 71.9 % (47.0-73.0); PLATELET COUNT AUTOMATED 814 10*3/uL (130-400); RED BLOOD COUNT 5.35 10*6/uL (4.10-5.10); RED CELL DISTRI WIDTH 19.2 % (0-14.5)
[2020-01-06 12:43] LABS: ALBUMIN 3.2 gm/dl (3.1-4.5); ALKALINE PHOSPHATASE 115 U/L (45-117); BUN 9 mg/dl (7-24); CHLORIDE 107 mmol/L (98-107); CREATININE 0.77 mg/dL (0.55-1.02); POTASSIUM 3.2 mmol/L (3.5-5.1); SGOT/AST 11 IU/L (3-35); SGPT/ALT 21 U/L (12-78); SODIUM 141 mmol/L (136-145); T3 UPTAKE 32 % (31-39); THYROXINE (T4) TOTAL 12.1 ug/dl (4.8-13.9); TOTAL PROTEIN 7.3 gm/dL (6.4-8.2)
[2020-01-06 12:44] LABS: CHOLESTEROL 204 mg/dL (<200); HDL CHOLESTEROL 36 mg/dl (40-60); LDL CHOLESTEROL 133 mg/dL (9-159); TRIGLYCERIDES 173 mg/dl (<150); VLDL CHOLESTEROL 35 mg/dL (6-40)
== END | disposition home or self-care (01) ==
LOC: LAB 10:26
PROVIDERS: Nurse Practitioner Family; Registered Nurse Flight
DX: E11.59 Type 2 diabetes mellitus with other circulatory complications (principal); E78.5 Hyperlipidemia, unspecified; I10 Essential (primary) hypertension; N20.0 Calculus of kidney

== ENCOUNTER 2020-03-10 11:49 | Emergency (ER) | payer OTHER ==
[~2020-03-10] VITALS: Ht 162.5 cm; Wt 127.0 kg
[2020-03-10 13:16] LABS: BASO # 0.1 10*3/uL (0.0-0.1); BASO % 0.6 % (0.0-1.0); EOS # 0.2 10*3/uL (0.0-0.4); EOS % 1.8 % (1.0-4.0); HEMATOCRIT 41.9 % (37.0-47.0); LYMPH # 2.3 10*3/uL (1.3-4.4); LYMPH % 19.8 % (27.0-41.0); MEAN CELL VOLUME 84.8 fl (81.0-99.0); MEAN CORPUSCULAR HGB 25.9 pg (27.0-31.0); MEAN CORPUSCULAR HGB CONC 30.5 g/dl (33.0-37.0); MEAN PLATELET VOLUME 10.1 fl (9.6-12.3); MONO # 0.6 10*3/uL (0.1-1.0); NEUT # 8.3 10*3/uL (2.3-7.9); NEUT % 72.2 % (47.0-73.0); PLATELET COUNT AUTOMATED 716 10*3/uL (130-400); RED BLOOD COUNT 4.94 10*6/uL (4.10-5.10); RED CELL DISTRI WIDTH 15.9 % (0-14.5); WHITE BLOOD COUNT 11.5 10*3/uL (4.8-10.8)
[2020-03-10 13:29] LABS: ALBUMIN 3.1 gm/dl (3.1-4.5); ALKALINE PHOSPHATASE 133 U/L (45-117); BUN 11 mg/dl (7-24); CHLORIDE 108 mmol/L (98-107); CREATININE 0.83 mg/dL (0.55-1.02); POTASSIUM 3.3 mmol/L (3.5-5.1); SGOT/AST 6 IU/L (3-35); SGPT/ALT 19 U/L (12-78); SODIUM 141 mmol/L (136-145); TOTAL PROTEIN 7.1 gm/dL (6.4-8.2)
== END 2020-03-10 15:30 | disposition home or self-care (01) ==
LOC: ED 11:49
PROVIDERS: Nurse Practitioner Family
DX: R60.0 Localized edema (principal); I25.2 Old myocardial infarction; J44.9 Chronic obstructive pulmonary disease, unspecified; I10 Essential (primary) hypertension; I25.10 Atherosclerotic heart disease of native coronary artery without angina pectoris; E78.00 Pure hypercholesterolemia, unspecified; Z95.1 Presence of aortocoronary bypass graft; Z79.899 Other long term (current) drug therapy; Z79.82 Long term (current) use of aspirin; Z86.73 Personal history of transient ischemic attack (TIA), and cerebral infarction without residual deficits; Z86.718 Personal history of other venous thrombosis and embolism; Z87.442 Personal history of urinary calculi

== ENCOUNTER → 2020-04-08 | Outpatient (CLI) | payer OTHER ==
[2020-04-08 10:59] LABS: BASO # 0.1 10*3/uL (0.0-0.1); BASO % 0.9 % (0.0-1.0); EOS # 0.2 10*3/uL (0.0-0.4); EOS % 1.6 % (1.0-4.0); HEMATOCRIT 44.1 % (37.0-47.0); LYMPH # 1.8 10*3/uL (1.3-4.4); LYMPH % 17.1 % (27.0-41.0); MEAN CELL VOLUME 86.3 fl (81.0-99.0); MEAN CORPUSCULAR HGB 26.2 pg (27.0-31.0); MEAN CORPUSCULAR HGB CONC 30.4 g/dl (33.0-37.0); MEAN PLATELET VOLUME 10.9 fl (9.6-12.3); MONO # 0.5 10*3/uL (0.1-1.0); MONO % 4.5 % (3.0-9.0); NEUT % 75.5 % (47.0-73.0); PLATELET COUNT AUTOMATED 687 10*3/uL (130-400); RED BLOOD COUNT 5.11 10*6/uL (4.10-5.10); RED CELL DISTRI WIDTH 15.5 % (0-14.5); RETICULOCYTE % 1.56 % (0.50-2.50); WHITE BLOOD COUNT 10.6 10*3/uL (4.8-10.8)
[2020-04-08 11:25] LABS: ALBUMIN 3.1 gm/dl (3.1-4.5); BUN 8 mg/dl (7-24); CHLORIDE 109 mmol/L (98-107); CREATININE 0.83 mg/dL (0.55-1.02); IRON 34 ug/dL (50-170); POTASSIUM 3.5 mmol/L (3.5-5.1); SGPT/ALT 24 U/L (12-78); SODIUM 141 mmol/L (136-145); TOTAL IRON BINDING CAPACITY 360 ug/dl (250-450)
[2020-04-08 11:27] LABS: ALKALINE PHOSPHATASE 141 U/L (45-117); SGOT/AST 7 IU/L (3-35); TOTAL PROTEIN 7.2 gm/dL (6.4-8.2)
[2020-04-08 12:26] LABS: FERRITIN 24.9 ng/mL (10.0-291.0)
[2020-04-10 01:08] LABS: FACTOR VIII ACTIVITY 124 % (56-140); VON WILLEBRAND ACTIVITY 56 % (50-200)
[2020-04-16 18:08] LABS: CELLS ANALYZED 200 (.); CELLS COUNTED 200 (.); DIRECTOR REVIEW Comment: (.); INTERPRETATION Comment: (.); RESULT Comment: (.); SPECIMEN TYPE BLOOD (.)
== END | disposition home or self-care (01) ==
LOC: LAB 10:20
PROVIDERS: Internal Medicine Hematology & Oncology
DX: D47.3 Essential (hemorrhagic) thrombocythemia (principal); R79.89 Other specified abnormal findings of blood chemistry; D46.4 Refractory anemia, unspecified

== ENCOUNTER 2020-09-01 13:23 | Observation (INO) | payer OTHER ==
[~2020-09-01] VITALS: Ht 162.5 cm; Wt 122.5 kg
[2020-09-01 13:42] VITALS: BP 162/99
[2020-09-01 14:16] LABS: BILIRUBIN Negative (Negative); BLOOD Negative (Negative); CLARITY Clear (Clear); COLOR Yellow (Yellow); GLUCOSE 3+ (Negative); KETONE Negative (Negative); LEUKO ESTERASE 1+ (Negative); NITRITE Negative (Negative); SPECIFIC GRAVITY >= 1.030 (1.001-1.030); UROBILINOGEN 0.2 E.U./dl (0.0-1.0)
[2020-09-01 14:27] LABS: BACTERIA 1+; YEAST 1+
[2020-09-01 14:33] LABS: BASO # 0.1 10*3/uL (0.0-0.1); EOS # 0.3 10*3/uL (0.0-0.4); EOS % 2.7 % (1.0-4.0); HEMATOCRIT 43.3 % (37.0-47.0); LYMPH # 2.5 10*3/uL (1.3-4.4); LYMPH % 22.8 % (27.0-41.0); MEAN CELL VOLUME 85.1 fl (81.0-99.0); MEAN CORPUSCULAR HGB 26.3 pg (27.0-31.0); MEAN CORPUSCULAR HGB CONC 30.9 g/dl (33.0-37.0); MEAN PLATELET VOLUME 10.4 fl (9.6-12.3); MONO # 0.5 10*3/uL (0.1-1.0); MONO % 4.2 % (3.0-9.0); NEUT # 7.5 10*3/uL (2.3-7.9); NEUT % 68.5 % (47.0-73.0); PLATELET COUNT AUTOMATED 698 10*3/uL (130-400); RED BLOOD COUNT 5.09 10*6/uL (4.10-5.10); RED CELL DISTRI WIDTH 14.9 % (0-14.5); WHITE BLOOD COUNT 10.9 10*3/uL (4.8-10.8)
[2020-09-01 14:43] LABS: ACT PARTIAL THROMBO TIME 25.8 SECONDS (20.0-32.1)
[2020-09-01 14:50] LABS: ALKALINE PHOSPHATASE 142 U/L (45-117); BUN 20 mg/dl (7-24); CHLORIDE 106 mmol/L (98-107); CREATININE 0.93 mg/dL (0.55-1.02); LIPASE 173 U/L (73-393); SGOT/AST 7 IU/L (3-35); SGPT/ALT 23 U/L (12-78); SODIUM 140 mmol/L (136-145); TOTAL PROTEIN 7.1 gm/dL (6.4-8.2)
[2020-09-01 15:00] LABS: TROPONIN I < 0.015 ng/ml (<0.045)
[2020-09-01 19:22] VITALS: BP 143/76
[2020-09-02 04:12] VITALS: BP 157/78
[2020-09-02 06:24] LABS: BASO # 0.1 10*3/uL (0.0-0.1); BASO % 1.2 % (0.0-1.0); EOS # 0.3 10*3/uL (0.0-0.4); EOS % 3.2 % (1.0-4.0); HEMATOCRIT 45.2 % (37.0-47.0); LYMPH % 28.8 % (27.0-41.0); MEAN CELL VOLUME 86.9 fl (81.0-99.0); MEAN CORPUSCULAR HGB 26.3 pg (27.0-31.0); MEAN CORPUSCULAR HGB CONC 30.3 g/dl (33.0-37.0); MEAN PLATELET VOLUME 10.5 fl (9.6-12.3); MONO # 0.6 10*3/uL (0.1-1.0); NEUT # 6.2 10*3/uL (2.3-7.9); PLATELET COUNT AUTOMATED 670 10*3/uL (130-400); RED CELL DISTRI WIDTH 15.4 % (0-14.5); WHITE BLOOD COUNT 10.3 10*3/uL (4.8-10.8)
[2020-09-02 06:32] LABS: BUN 20 mg/dl (7-24); CHLORIDE 109 mmol/L (98-107); CHOLESTEROL 198 mg/dL (<200); CREATININE 0.76 mg/dL (0.55-1.02); HDL CHOLESTEROL 36 mg/dl (40-60); LDL CHOLESTEROL 106 mg/dL (9-159); POTASSIUM 3.8 mmol/L (3.5-5.1); SGOT/AST 8 IU/L (3-35); SGPT/ALT 26 U/L (12-78); SODIUM 141 mmol/L (136-145); TOTAL PROTEIN 6.8 gm/dL (6.4-8.2); TRIGLYCERIDES 279 mg/dl (<150); VLDL CHOLESTEROL 56 mg/dL (6-40)
[2020-09-02 06:34] LABS: ALKALINE PHOSPHATASE 122 U/L (45-117)
[2020-09-02 08:15] VITALS: BP 153/65
== END 2020-09-02 17:58 | disposition home or self-care (01) ==
LOC: ED 13:23 → EDHOLD 17:26
PROVIDERS: Emergency Medicine; Student in an Organized Health Care Education/Training Program; ADMIT Internal Medicine; ATTEND Internal Medicine
DX: M25.511 Pain in right shoulder (principal); E11.65 Type 2 diabetes mellitus with hyperglycemia; R06.82 Tachypnea, not elsewhere classified; D72.829 Elevated white blood cell count, unspecified; D47.3 Essential (hemorrhagic) thrombocythemia; E87.2 Acidosis; E83.41 Hypermagnesemia; R74.8 Abnormal levels of other serum enzymes; R79.82 Elevated C-reactive protein (CRP); R79.89 Other specified abnormal findings of blood chemistry; E44.0 Moderate protein-calorie malnutrition; I10 Essential (primary) hypertension; I25.10 Atherosclerotic heart disease of native coronary artery without angina pectoris; E66.01 Morbid (severe) obesity due to excess calories

== ENCOUNTER 2020-12-06 11:05 | Emergency (ER) | payer OTHER ==
[~2020-12-06] VITALS: Wt 122.9 kg
[2020-12-06 11:36] LABS: BASO # 0.1 10*3/uL (0.0-0.1); BASO % 0.7 % (0.0-1.0); EOS # 0.2 10*3/uL (0.0-0.4); EOS % 1.3 % (1.0-4.0); HEMATOCRIT 47.2 % (37.0-47.0); LYMPH # 2.2 10*3/uL (1.3-4.4); LYMPH % 19.4 % (27.0-41.0); MEAN CELL VOLUME 87.4 fl (81.0-99.0); MEAN CORPUSCULAR HGB 26.9 pg (27.0-31.0); MEAN CORPUSCULAR HGB CONC 30.7 g/dl (33.0-37.0); MEAN PLATELET VOLUME 10.4 fl (9.6-12.3); MONO # 0.6 10*3/uL (0.1-1.0); MONO % 5.5 % (3.0-9.0); NEUT # 8.2 10*3/uL (2.3-7.9); NEUT % 72.6 % (47.0-73.0); PLATELET COUNT AUTOMATED 931 10*3/uL (130-400); RED CELL DISTRI WIDTH 15.2 % (0-14.5); WHITE BLOOD COUNT 11.3 10*3/uL (4.8-10.8)
[2020-12-06 11:47] LABS: ACT PARTIAL THROMBO TIME 27.1 SECONDS (20.0-32.1)
[2020-12-06 11:54] LABS: ALBUMIN 3.2 gm/dl (3.1-4.5); CREATININE 1.15 mg/dL (0.55-1.02); POTASSIUM 3.6 mmol/L (3.5-5.1)
[2020-12-06 11:56] LABS: TROPONIN I 0.226 ng/ml (<0.045)
[2020-12-06 12:27] LABS: BILIRUBIN Negative (Negative); BLOOD Trace-Lysed (Negative); CLARITY Turbid (Clear); COLOR Dark Yellow (Yellow); GLUCOSE 3+ (Negative); KETONE Trace (Negative); LEUKO ESTERASE 2+ (Negative); NITRITE Negative (Negative); SPECIFIC GRAVITY 1.025 (1.001-1.030)
[2020-12-06 12:37] LABS: BACTERIA 3+; EPITHELIAL CELLS 31-40; MUCOUS 1+; WBC TNTC wbc/hpf (0-5); YEAST 2+
[2020-12-06] MEDS ORDERED: CEPHALEXIN500 M1 PO (21:16)
== END 2020-12-06 21:31 | disposition left against medical advice (07) ==
LOC: ED 11:05
PROVIDERS: Emergency Medicine
DX: I63.9 Cerebral infarction, unspecified (principal); R77.8 Other specified abnormalities of plasma proteins; I25.10 Atherosclerotic heart disease of native coronary artery without angina pectoris; E11.9 Type 2 diabetes mellitus without complications; E78.5 Hyperlipidemia, unspecified; Z79.899 Other long term (current) drug therapy; Z79.4 Long term (current) use of insulin; Z90.49 Acquired absence of other specified parts of digestive tract; Z95.1 Presence of aortocoronary bypass graft; Z90.710 Acquired absence of both cervix and uterus

== ENCOUNTER 2021-02-26 19:35 | Emergency (ER) | payer OTHER ==
[~2021-02-26] VITALS: Ht 162.5 cm; Wt 136.1 kg
== END 2021-02-26 22:48 | disposition home or self-care (01) ==
LOC: ED 19:35
DX: S81.812A Laceration without foreign body, left lower leg, initial encounter (principal); S81.811A Laceration without foreign body, right lower leg, initial encounter; Z79.899 Other long term (current) drug therapy; Z79.82 Long term (current) use of aspirin; Z79.4 Long term (current) use of insulin; Z95.1 Presence of aortocoronary bypass graft; Z90.49 Acquired absence of other specified parts of digestive tract; Z90.711 Acquired absence of uterus with remaining cervical stump; W45.8XXA Other foreign body or object entering through skin, initial encounter; Y93.89 Activity, other specified; Y92.89 Other specified places as the place of occurrence of the external cause; Y99.8 Other external cause status

== ENCOUNTER 2021-03-01 10:28 | Emergency (ER) | payer OTHER ==
[~2021-03-01] VITALS: Ht 162.5 cm; Wt 122.5 kg
[2021-03-01 11:11] LABS: BASO # 0.1 10*3/uL (0.0-0.1); EOS # 0.2 10*3/uL (0.0-0.4); EOS % 1.6 % (1.0-4.0); HEMATOCRIT 47.6 % (37.0-47.0); LYMPH # 1.8 10*3/uL (1.3-4.4); LYMPH % 18.6 % (27.0-41.0); MEAN CELL VOLUME 86.2 fl (81.0-99.0); MEAN CORPUSCULAR HGB 27.2 pg (27.0-31.0); MEAN CORPUSCULAR HGB CONC 31.5 g/dl (33.0-37.0); MEAN PLATELET VOLUME 10.7 fl (9.6-12.3); MONO # 0.5 10*3/uL (0.1-1.0); MONO % 5.1 % (3.0-9.0); NEUT % 73.3 % (47.0-73.0); PLATELET COUNT AUTOMATED 839 10*3/uL (130-400); RED BLOOD COUNT 5.52 10*6/uL (4.10-5.10); RED CELL DISTRI WIDTH 14.6 % (0-14.5); WHITE BLOOD COUNT 9.6 10*3/uL (4.8-10.8)
[2021-03-01 11:28] LABS: ALBUMIN 3.4 gm/dl (3.1-4.5); ALKALINE PHOSPHATASE 96 U/L (45-117); BUN 5 mg/dl (7-24); CHLORIDE 109 mmol/L (98-107); CREATININE 0.85 mg/dL (0.55-1.02); POTASSIUM 2.6 mmol/L (3.5-5.1); SGOT/AST 21 IU/L (3-35); SGPT/ALT 38 U/L (12-78); SODIUM 142 mmol/L (136-145); TOTAL PROTEIN 7.2 gm/dL (6.4-8.2)
== END 2021-03-03 07:54 | disposition short-term general hospital (02) ==
LOC: ED 10:28
PROVIDERS: Emergency Medicine
DX: I63.9 Cerebral infarction, unspecified (principal); E87.6 Hypokalemia; Z79.899 Other long term (current) drug therapy; Z90.49 Acquired absence of other specified parts of digestive tract; Z98.890 Other specified postprocedural states; Z95.1 Presence of aortocoronary bypass graft; Z90.711 Acquired absence of uterus with remaining cervical stump

== ENCOUNTER 2021-03-21 22:16 | Inpatient (IN) | payer OTHER ==
[~2021-03-21] VITALS: Ht 162.5 cm; Wt 107.7 kg
[2021-03-21 22:16] VITALS: BP 167/75
[2021-03-22] VITALS (7 sets, daily range): BP systolic 134–177; BP diastolic 51–90
[2021-03-22 06:14] LABS: ACT PARTIAL THROMBO TIME 28.6 SECONDS (20.0-32.1)
[2021-03-22 06:19] LABS: BASO # 0.1 10*3/uL (0.0-0.1); EOS # 0.2 10*3/uL (0.0-0.4); EOS % 1.7 % (1.0-4.0); HEMATOCRIT 44.3 % (37.0-47.0); LYMPH # 2.3 10*3/uL (1.3-4.4); LYMPH % 24.2 % (27.0-41.0); MEAN CELL VOLUME 87.7 fl (81.0-99.0); MEAN CORPUSCULAR HGB 27.9 pg (27.0-31.0); MEAN CORPUSCULAR HGB CONC 31.8 g/dl (33.0-37.0); MEAN PLATELET VOLUME 10.6 fl (9.6-12.3); MONO # 0.6 10*3/uL (0.1-1.0); MONO % 6.1 % (3.0-9.0); NEUT # 6.2 10*3/uL (2.3-7.9); NEUT % 66.7 % (47.0-73.0); PLATELET COUNT AUTOMATED 724 10*3/uL (130-400); RED BLOOD COUNT 5.05 10*6/uL (4.10-5.10); RED CELL DISTRI WIDTH 14.7 % (0-14.5); WHITE BLOOD COUNT 9.3 10*3/uL (4.8-10.8)
[2021-03-22 06:37] LABS: ALBUMIN 2.7 gm/dl (3.1-4.5); ALKALINE PHOSPHATASE 83 U/L (45-117); BUN 6 mg/dl (7-24); CHLORIDE 110 mmol/L (98-107); CHOLESTEROL 175 mg/dL (<200); CREATININE 0.95 mg/dL (0.55-1.02); LDL CHOLESTEROL 102 mg/dL (9-159); POTASSIUM 2.7 mmol/L (3.5-5.1); SGOT/AST 12 IU/L (3-35); SGPT/ALT 25 U/L (12-78); SODIUM 144 mmol/L (136-145); TOTAL PROTEIN 6.4 gm/dL (6.4-8.2); TRIGLYCERIDES 217 mg/dl (<150)
[2021-03-22 06:41] LABS: THYROID STIM HORMONE (HS) 0.667 uIU/ml (0.358-4.75)
[2021-03-22 15:53] LABS: BILIRUBIN 2+ (Negative); BLOOD 3+ (Negative); CLARITY Turbid (Clear); COLOR Orange (Yellow); GLUCOSE Trace (Negative); KETONE Trace (Negative); LEUKO ESTERASE 2+ (Negative); NITRITE Negative (Negative); SPECIFIC GRAVITY >= 1.030 (1.001-1.030); UROBILINOGEN 0.2 E.U./dl (0.0-1.0)
[2021-03-22 16:05] LABS: BACTERIA 3+; EPITHELIAL CELLS TNTC; RBC TNTC rbc/hpf (0-2); WBC TNTC wbc/hpf (0-5)
[2021-03-23] VITALS: BP 128/62
[2021-03-23 05:56] LABS: BASO # 0.1 10*3/uL (0.0-0.1); BASO % 0.8 % (0.0-1.0); EOS # 0.1 10*3/uL (0.0-0.4); EOS % 1.4 % (1.0-4.0); LYMPH # 2.7 10*3/uL (1.3-4.4); LYMPH % 26.6 % (27.0-41.0); MEAN CELL VOLUME 87.9 fl (81.0-99.0); MEAN CORPUSCULAR HGB CONC 31.9 g/dl (33.0-37.0); MEAN PLATELET VOLUME 10.8 fl (9.6-12.3); MONO # 0.6 10*3/uL (0.1-1.0); MONO % 5.9 % (3.0-9.0); NEUT # 6.5 10*3/uL (2.3-7.9); NEUT % 64.9 % (47.0-73.0); PLATELET COUNT AUTOMATED 775 10*3/uL (130-400); RED BLOOD COUNT 4.89 10*6/uL (4.10-5.10); RED CELL DISTRI WIDTH 14.8 % (0-14.5)
[2021-03-23 06:10] LABS: ALBUMIN 2.8 gm/dl (3.1-4.5); BUN 10 mg/dl (7-24); CHLORIDE 113 mmol/L (98-107); SODIUM 145 mmol/L (136-145)
[2021-03-23 06:14] LABS: ALKALINE PHOSPHATASE 82 U/L (45-117); CREATININE 0.83 mg/dL (0.55-1.02); SGOT/AST 8 IU/L (3-35); SGPT/ALT 22 U/L (12-78); TOTAL PROTEIN 6.3 gm/dL (6.4-8.2)
[2021-03-23 08:00] VITALS: BP 136/70
[2021-03-23 14:09] VITALS: BP 152/80
[2021-03-23 16:00] VITALS: BP 128/62
[2021-03-23 20:00] VITALS: BP 151/76
[2021-03-24] VITALS: BP 148/62
[2021-03-24 07:21] LABS: BUN 10 mg/dl (7-24); CHLORIDE 113 mmol/L (98-107); CREATININE 0.82 mg/dL (0.55-1.02); POTASSIUM 3.3 mmol/L (3.5-5.1); SODIUM 145 mmol/L (136-145)
[2021-03-24 12:00] VITALS: BP 131/83
[2021-03-24 16:00] VITALS: BP 138/82
[2021-03-24 20:00] VITALS: BP 150/79
[2021-03-25] VITALS (9 sets, daily range): BP systolic 122–161; BP diastolic 54–84
[2021-03-25 06:21] LABS: BUN 11 mg/dl (7-24); CHLORIDE 115 mmol/L (98-107); CREATININE 0.77 mg/dL (0.55-1.02); POTASSIUM 3.5 mmol/L (3.5-5.1); SODIUM 148 mmol/L (136-145)
[2021-03-26] VITALS: BP 106/54
[2021-03-26 06:14] LABS: BASO # 0.1 10*3/uL (0.0-0.1); BASO % 0.6 % (0.0-1.0); EOS # 0.1 10*3/uL (0.0-0.4); LYMPH # 1.9 10*3/uL (1.3-4.4); LYMPH % 19.3 % (27.0-41.0); MEAN CELL VOLUME 91.1 fl (81.0-99.0); MEAN CORPUSCULAR HGB 27.8 pg (27.0-31.0); MEAN CORPUSCULAR HGB CONC 30.5 g/dl (33.0-37.0); MEAN PLATELET VOLUME 10.7 fl (9.6-12.3); MONO # 0.7 10*3/uL (0.1-1.0); MONO % 7.1 % (3.0-9.0); NEUT # 7.1 10*3/uL (2.3-7.9); NEUT % 71.6 % (47.0-73.0); PLATELET COUNT AUTOMATED 701 10*3/uL (130-400); RED BLOOD COUNT 4.61 10*6/uL (4.10-5.10); RED CELL DISTRI WIDTH 15.5 % (0-14.5); WHITE BLOOD COUNT 9.9 10*3/uL (4.8-10.8)
[2021-03-26 06:21] LABS: ALKALINE PHOSPHATASE 85 U/L (45-117); BUN 13 mg/dl (7-24); CHLORIDE 114 mmol/L (98-107); CREATININE 0.78 mg/dL (0.55-1.02); POTASSIUM 3.4 mmol/L (3.5-5.1); SGOT/AST 8 IU/L (3-35); SGPT/ALT 22 U/L (12-78); SODIUM 146 mmol/L (136-145); TOTAL PROTEIN 6.6 gm/dL (6.4-8.2)
[2021-03-26 08:12] VITALS: BP 144/71
[2021-03-26 11:53] VITALS: BP 103/58
[2021-03-26 15:00] VITALS: BP 147/62
[2021-03-26 16:11] VITALS: BP 121/50
[2021-03-26 20:00] VITALS: BP 158/82
[2021-03-27] VITALS: BP 119/55
[2021-03-27 06:43] LABS: BASO # 0.1 10*3/uL (0.0-0.1); BASO % 0.8 % (0.0-1.0); EOS # 0.2 10*3/uL (0.0-0.4); EOS % 1.9 % (1.0-4.0); HEMATOCRIT 40.4 % (37.0-47.0); LYMPH # 2.3 10*3/uL (1.3-4.4); LYMPH % 25.3 % (27.0-41.0); MEAN CELL VOLUME 88.6 fl (81.0-99.0); MEAN CORPUSCULAR HGB 27.6 pg (27.0-31.0); MEAN CORPUSCULAR HGB CONC 31.2 g/dl (33.0-37.0); MEAN PLATELET VOLUME 10.6 fl (9.6-12.3); MONO # 0.6 10*3/uL (0.1-1.0); MONO % 6.5 % (3.0-9.0); NEUT # 5.7 10*3/uL (2.3-7.9); NEUT % 64.7 % (47.0-73.0); PLATELET COUNT AUTOMATED 674 10*3/uL (130-400); RED BLOOD COUNT 4.56 10*6/uL (4.10-5.10); RED CELL DISTRI WIDTH 15.8 % (0-14.5); WHITE BLOOD COUNT 8.9 10*3/uL (4.8-10.8)
[2021-03-27 07:26] LABS: ALBUMIN 2.8 gm/dl (3.1-4.5); BUN 12 mg/dl (7-24); CHLORIDE 114 mmol/L (98-107); POTASSIUM 3.4 mmol/L (3.5-5.1); SGOT/AST 8 IU/L (3-35); SGPT/ALT 19 U/L (12-78); SODIUM 143 mmol/L (136-145)
[2021-03-27 07:28] LABS: ALKALINE PHOSPHATASE 90 U/L (45-117); TOTAL PROTEIN 6.4 gm/dL (6.4-8.2)
[2021-03-27 08:00] VITALS: BP 151/63
[2021-03-27 12:00] VITALS: BP 143/69
[2021-03-27] MEDS ORDERED: GLUCERNA 1 CAL237 ML PO (12:40)
[2021-03-27] MEDS ORDERED: CLOPIDOGREL75 MG PO (12:56)
== END 2021-03-27 15:56 | DRG 947 ==
LOC: ED 22:16 → EDHOLD 03-22 01:14 → 5E 03-22 01:14
PROVIDERS: Family Medicine; Internal Medicine; Student in an Organized Health Care Education/Training Program; ADMIT Internal Medicine; ATTEND Internal Medicine
PROC: BD1BYZZ Fluoroscopy of Mouth/Oropharynx using Other Contrast (ICD-10-PCS; 2021-03-24)
PROC: 0DH63UZ Insertion of Feeding Device into Stomach, Percutaneous Approach (ICD-10-PCS; principal; 2021-03-25)
DX: R53.1 Weakness (principal); E43 Unspecified severe protein-calorie malnutrition; Z68.41 Body mass index [BMI] 40.0-44.9, adult; I69.354 Hemiplegia and hemiparesis following cerebral infarction affecting left non-dominant side; R13.10 Dysphagia, unspecified; D47.3 Essential (hemorrhagic) thrombocythemia; N20.0 Calculus of kidney; E66.01 Morbid (severe) obesity due to excess calories; I10 Essential (primary) hypertension; E78.5 Hyperlipidemia, unspecified; I25.10 Atherosclerotic heart disease of native coronary artery without angina pectoris; E11.65 Type 2 diabetes mellitus with hyperglycemia; E11.69 Type 2 diabetes mellitus with other specified complication; E55.9 Vitamin D deficiency, unspecified; R60.9 Edema, unspecified; E87.8 Other disorders of electrolyte and fluid balance, not elsewhere classified; E87.6 Hypokalemia; G93.89 Other specified disorders of brain; Z20.822 Contact with and (suspected) exposure to COVID-19; F17.210 Nicotine dependence, cigarettes, uncomplicated; S81.811A Laceration without foreign body, right lower leg, initial encounter; X58.XXXA Exposure to other specified factors, initial encounter; Y93.89 Activity, other specified; Y92.89 Other specified places as the place of occurrence of the external cause; Y99.8 Other external cause status; Z71.6 Tobacco abuse counseling; Z90.49 Acquired absence of other specified parts of digestive tract; Z95.1 Presence of aortocoronary bypass graft; Z90.710 Acquired absence of both cervix and uterus; Z95.5 Presence of coronary angioplasty implant and graft; Z83.3 Family history of diabetes mellitus; Z82.49 Family history of ischemic heart disease and other diseases of the circulatory system; Z82.3 Family history of stroke; Z85.41 Personal history of malignant neoplasm of cervix uteri; Z79.82 Long term (current) use of aspirin; Z79.899 Other long term (current) drug therapy

== ENCOUNTER 2021-04-29 15:00 | Emergency (ER) | payer OTHER ==
[~2021-04-29] VITALS: Ht 162.5 cm; Wt 105.4 kg
[~2021-04-29 15:00] MED LIST changes: +GLUCERNA 1 CAL237 ML PO; +VITAMIN D310 MCG PO; -VITAMIN D400 I1 PO
[2021-05-04] MEDS ORDERED: MACRODANTIN100 M1 PO (04:41)
== END 2021-04-29 19:37 ==
LOC: ED 15:00
DX: F32.9 Major depressive disorder, single episode, unspecified (principal); J44.9 Chronic obstructive pulmonary disease, unspecified; F17.200 Nicotine dependence, unspecified, uncomplicated; I10 Essential (primary) hypertension; I25.10 Atherosclerotic heart disease of native coronary artery without angina pectoris; Z90.49 Acquired absence of other specified parts of digestive tract; Z90.710 Acquired absence of both cervix and uterus; Z79.82 Long term (current) use of aspirin; Z86.73 Personal history of transient ischemic attack (TIA), and cerebral infarction without residual deficits; Z79.899 Other long term (current) drug therapy; Z95.1 Presence of aortocoronary bypass graft

== ENCOUNTER 2021-05-05 21:07 | Inpatient (IN) | payer OTHER ==
[~2021-05-05] VITALS: Ht 160 cm; Wt 100.4 kg
[~2021-05-05 21:07] MED LIST changes: +MACRODANTIN100 M1 PO
[2021-05-05 21:11] VITALS: BP 118/47
[2021-05-05 23:11] LABS: BASO # 0.1 10*3/uL (0.0-0.1); BASO % 0.5 % (0.0-1.0); EOS # 0.3 10*3/uL (0.0-0.4); EOS % 2.9 % (1.0-4.0); HEMATOCRIT 40.8 % (37.0-47.0); LYMPH # 2.4 10*3/uL (1.3-4.4); LYMPH % 26.3 % (27.0-41.0); MEAN CELL VOLUME 90.5 fl (81.0-99.0); MEAN CORPUSCULAR HGB 28.6 pg (27.0-31.0); MEAN CORPUSCULAR HGB CONC 31.6 g/dl (33.0-37.0); MEAN PLATELET VOLUME 10.8 fl (9.6-12.3); MONO # 0.7 10*3/uL (0.1-1.0); NEUT # 5.8 10*3/uL (2.3-7.9); NEUT % 62.9 % (47.0-73.0); PLATELET COUNT AUTOMATED 840 10*3/uL (130-400); RED BLOOD COUNT 4.51 10*6/uL (4.10-5.10); RED CELL DISTRI WIDTH 15.4 % (0-14.5); WHITE BLOOD COUNT 9.3 10*3/uL (4.8-10.8)
[2021-05-05 23:39] LABS: ALBUMIN 3.1 gm/dl (3.1-4.5); ALKALINE PHOSPHATASE 78 U/L (45-117); BUN 51 mg/dl (7-24); CHLORIDE 106 mmol/L (98-107); CREATININE 2.62 mg/dL (0.55-1.02); POTASSIUM 3.9 mmol/L (3.5-5.1); SGOT/AST 11 IU/L (3-35); SGPT/ALT 23 U/L (12-78); SODIUM 137 mmol/L (136-145); TOTAL PROTEIN 7.1 gm/dL (6.4-8.2)
[2021-05-05 23:42] LABS: TROPONIN I < 0.015 ng/ml (<0.045)
[2021-05-05 23:43] LABS: BILIRUBIN Negative (Negative); BLOOD Negative (Negative); CLARITY Turbid (Clear); COLOR Yellow (Yellow); GLUCOSE Negative (Negative); KETONE Trace (Negative); LEUKO ESTERASE 2+ (Negative); NITRITE Negative (Negative)
[2021-05-05 23:54] LABS: BACTERIA 4+; EPITHELIAL CELLS 21-30; WBC 41-50 wbc/hpf (0-5)
[2021-05-06] VITALS (7 sets, daily range): BP systolic 101–146; BP diastolic 48–76
[2021-05-06] MEDS ORDERED: ATIVAN0.5 MG PO (04:31)
[2021-05-06] MEDS ORDERED: CARAFATE1 GM PO (04:34)
[2021-05-06] MEDS ORDERED: DEPAKOTE SPRIN125 MG PO (04:35)
[2021-05-06] MEDS ORDERED: DITROPAN XL5 MG PO (04:36)
[2021-05-06] MEDS ORDERED: HEARTBURN RELIE20 MG PO (04:37)
[2021-05-06] MEDS ORDERED: EXELON1 EACH T (04:37)
[2021-05-06] MEDS ORDERED: MYLICON, MYLANT80 MG PO (04:38)
[2021-05-06] MEDS ORDERED: HEPARIN SO5000 UNIT6 SQ (04:39)
[2021-05-06] MEDS ORDERED: HYDR12.5C PO (04:39)
[2021-05-06] MEDS ORDERED: MELATONIN5 M1 PO (04:42)
[2021-05-06] MEDS ORDERED: MIRALAX17 GM PO (04:43)
[2021-05-06] MEDS ORDERED: NEOSPORIN OIN28.3 GM T (04:44)
[2021-05-06] MEDS ORDERED: NICODERM CQ1 EAC1 T (04:45)
[2021-05-06] MEDS ORDERED: NOVOLOG10 ML SC (04:45)
[2021-05-06] MEDS ORDERED: NYSTATIN1 EAC3 MC (04:46)
[2021-05-06] MEDS ORDERED: PREPARATION H C26 GM R (04:47)
[2021-05-06] MEDS ORDERED: PROTONIX40 MG PO (04:48)
[2021-05-06] MEDS ORDERED: REGLAN10 M1 PO (04:48)
[2021-05-06] MEDS ORDERED: REMERON15 M2 PO (04:49)
[2021-05-06] MEDS ORDERED: TOBRAMYCIN 5 ML5 M1 OPH (04:53)
[2021-05-06] MEDS ORDERED: TRAMADOL HCL50 MG PO (04:54)
[2021-05-06] MEDS ORDERED: VISTARIL50 MG PO (04:54)
[2021-05-06] MEDS ORDERED: VOLTAREN ARTHRI20 GM T (04:56)
[2021-05-06] MEDS ORDERED: ZOFRAN4 MG PO (04:57)
[2021-05-06] MEDS ORDERED: ZINC50 M5 PO (04:58)
[2021-05-06] MEDS ORDERED: TUMS200 MG PO (04:59)
[2021-05-06] MEDS ORDERED: GLUCERNA 1.5 C237 ML PEG (05:01)
[2021-05-06 06:25] LABS: BASO # 0.1 10*3/uL (0.0-0.1); BASO % 0.6 % (0.0-1.0); EOS # 0.3 10*3/uL (0.0-0.4); EOS % 3.1 % (1.0-4.0); HEMATOCRIT 40.6 % (37.0-47.0); LYMPH # 2.3 10*3/uL (1.3-4.4); LYMPH % 24.5 % (27.0-41.0); MEAN CELL VOLUME 91.6 fl (81.0-99.0); MEAN CORPUSCULAR HGB 28.2 pg (27.0-31.0); MEAN CORPUSCULAR HGB CONC 30.8 g/dl (33.0-37.0); MEAN PLATELET VOLUME 10.7 fl (9.6-12.3); MONO # 0.6 10*3/uL (0.1-1.0); MONO % 6.8 % (3.0-9.0); NEUT % 64.5 % (47.0-73.0); PLATELET COUNT AUTOMATED 858 10*3/uL (130-400); RED BLOOD COUNT 4.43 10*6/uL (4.10-5.10); RED CELL DISTRI WIDTH 15.5 % (0-14.5); WHITE BLOOD COUNT 9.4 10*3/uL (4.8-10.8)
[2021-05-06 06:46] LABS: ACT PARTIAL THROMBO TIME 30.3 SECONDS (20.0-32.1); INTERNATIONAL NORM RATIO 1.1 (2.0-3.5)
[2021-05-06 06:49] LABS: ALBUMIN 3.3 gm/dl (3.1-4.5); CREATININE 2.18 mg/dL (0.55-1.02); POTASSIUM 3.3 mmol/L (3.5-5.1); TOTAL PROTEIN 7.1 gm/dL (6.4-8.2)
[2021-05-07] VITALS: BP 115/52
[2021-05-07 06:35] LABS: BASO # 0.1 10*3/uL (0.0-0.1); BASO % 0.9 % (0.0-1.0); EOS # 0.2 10*3/uL (0.0-0.4); HEMATOCRIT 37.2 % (37.0-47.0); LYMPH # 2.2 10*3/uL (1.3-4.4); LYMPH % 28.5 % (27.0-41.0); MEAN CELL VOLUME 91.2 fl (81.0-99.0); MEAN CORPUSCULAR HGB 28.2 pg (27.0-31.0); MEAN CORPUSCULAR HGB CONC 30.9 g/dl (33.0-37.0); MEAN PLATELET VOLUME 11.1 fl (9.6-12.3); MONO # 0.7 10*3/uL (0.1-1.0); MONO % 8.4 % (3.0-9.0); NEUT # 4.6 10*3/uL (2.3-7.9); NEUT % 58.8 % (47.0-73.0); PLATELET COUNT AUTOMATED 815 10*3/uL (130-400); RED BLOOD COUNT 4.08 10*6/uL (4.10-5.10); RED CELL DISTRI WIDTH 15.5 % (0-14.5); WHITE BLOOD COUNT 7.8 10*3/uL (4.8-10.8)
[2021-05-07 06:59] LABS: ALBUMIN 2.9 gm/dl (3.1-4.5); CREATININE 1.32 mg/dL (0.55-1.02); POTASSIUM 3.6 mmol/L (3.5-5.1)
[2021-05-07 07:00] LABS: TOTAL PROTEIN 6.3 gm/dL (6.4-8.2)
[2021-05-07 08:00] VITALS: BP 134/62
[2021-05-07 12:00] VITALS: BP 130/58
[2021-05-07 16:00] VITALS: BP 130/58
[2021-05-07 20:00] VITALS: BP 124/72; BP 137/60
[2021-05-08] VITALS: BP 137/63
[2021-05-08 06:25] LABS: BASO # 0.1 10*3/uL (0.0-0.1); CHLORIDE 117 mmol/L (98-107); CREATININE 0.95 mg/dL (0.55-1.02); EOS # 0.3 10*3/uL (0.0-0.4); EOS % 3.7 % (1.0-4.0); HEMATOCRIT 36.2 % (37.0-47.0); LYMPH # 2.4 10*3/uL (1.3-4.4); LYMPH % 34.9 % (27.0-41.0); MEAN CELL VOLUME 91.6 fl (81.0-99.0); MEAN CORPUSCULAR HGB 28.1 pg (27.0-31.0); MEAN CORPUSCULAR HGB CONC 30.7 g/dl (33.0-37.0); MEAN PLATELET VOLUME 10.9 fl (9.6-12.3); MONO # 0.6 10*3/uL (0.1-1.0); MONO % 8.3 % (3.0-9.0); NEUT # 3.5 10*3/uL (2.3-7.9); NEUT % 51.7 % (47.0-73.0); PLATELET COUNT AUTOMATED 769 10*3/uL (130-400); POTASSIUM 3.6 mmol/L (3.5-5.1); RED BLOOD COUNT 3.95 10*6/uL (4.10-5.10); RED CELL DISTRI WIDTH 15.6 % (0-14.5); SODIUM 145 mmol/L (136-145); WHITE BLOOD COUNT 6.8 10*3/uL (4.8-10.8)
[2021-05-08 06:36] LABS: BUN 29 mg/dl (7-24)
[2021-05-08 08:00] VITALS: BP 121/64
[2021-05-08 12:00] VITALS: BP 117/58
[2021-05-08 16:00] VITALS: BP 129/82
[2021-05-08 20:00] VITALS: BP 143/64
[2021-05-09] VITALS: BP 143/64; BP 145/97; BP 150/72
[2021-05-09 08:00] VITALS: BP 157/55
[2021-05-09 12:00] VITALS: BP 142/57
[2021-05-09 16:00] VITALS: BP 149/65
[2021-05-09 20:00] VITALS: BP 141/71
[2021-05-10] VITALS: BP 130/65
[2021-05-10 08:00] VITALS: BP 174/88
[2021-05-10 12:00] VITALS: BP 172/80
[2021-05-10 13:00] VITALS: BP 135/70
[2021-05-10] MEDS ORDERED: ATIVAN0.5 MG PO (13:27)
[2021-05-10] MEDS ORDERED: CIPRO500 MG PO (13:27)
[2021-05-10 16:00] VITALS: BP 127/50
[2021-05-10 20:00] VITALS: BP 129/53
[2021-05-11] VITALS: BP 116/69
[2021-05-11 08:00] VITALS: BP 146/64
== END 2021-05-11 10:58 | DRG 689 ==
LOC: ED 21:07 → EDHOLD 05-06 01:56 → 5E 05-06 01:56
PROVIDERS: Emergency Medicine; Hospitalist; Social Worker Clinical; ADMIT Internal Medicine; ATTEND Internal Medicine
PROC: BD1BYZZ Fluoroscopy of Mouth/Oropharynx using Other Contrast (ICD-10-PCS; principal; 2021-05-07)
DX: N30.00 Acute cystitis without hematuria (principal); N17.0 Acute kidney failure with tubular necrosis; G93.41 Metabolic encephalopathy; I25.10 Atherosclerotic heart disease of native coronary artery without angina pectoris; Z20.822 Contact with and (suspected) exposure to COVID-19; D47.3 Essential (hemorrhagic) thrombocythemia; I10 Essential (primary) hypertension; E78.2 Mixed hyperlipidemia; E11.65 Type 2 diabetes mellitus with hyperglycemia; F17.210 Nicotine dependence, cigarettes, uncomplicated; E87.6 Hypokalemia; E83.41 Hypermagnesemia; F41.9 Anxiety disorder, unspecified; B96.20 Unspecified Escherichia coli [E. coli] as the cause of diseases classified elsewhere; Z86.73 Personal history of transient ischemic attack (TIA), and cerebral infarction without residual deficits; Z90.49 Acquired absence of other specified parts of digestive tract; Z90.710 Acquired absence of both cervix and uterus; Z95.1 Presence of aortocoronary bypass graft; Z79.899 Other long term (current) drug therapy

== ENCOUNTER → 2021-07-05 | Day surgery (SDC) | payer OTHER ==
[~2021-07-05] VITALS: Wt 104.3 kg
[~2021-07-05] MED LIST changes: +ATIVAN0.5 MG PO; +CARAFATE1 GM PO; +DEPAKOTE SPRIN125 MG PO; +DITROPAN XL5 MG PO; +EXELON1 EACH T; +GLUCERNA 1.5 C237 ML PEG; +HEARTBURN RELIE20 MG PO; +HEPARIN SO5000 UNIT6 SQ; +HYDR12.5C PO; +MELATONIN5 M1 PO; +MIRALAX17 GM PO; +MYLICON, MYLANT80 MG PO; +NEOSPORIN OIN28.3 GM T; +NICODERM CQ1 EAC1 T; +NOVOLOG10 ML SC; +NYSTATIN1 EAC3 MC; +PREPARATION H C26 GM R; +PROTONIX40 MG PO; +REGLAN10 M1 PO; +REMERON15 M2 PO; +TOBRAMYCIN 5 ML5 M1 OPH; +TRAMADOL HCL50 MG PO; +TUMS200 MG PO; +VISTARIL50 MG PO; +VOLTAREN ARTHRI20 GM T; +ZINC50 M5 PO; +ZOFRAN4 MG PO
[2021-07-05 07:30] VITALS: BP 130/83
[2021-07-05 08:45] VITALS: BP 126/60
[2021-07-05 09:00] VITALS: BP 110/62
[2021-07-05 09:15] VITALS: BP 126/70; BP 129/57
== END | disposition home or self-care (01) ==
LOC: SDC 07-01 11:00
PROVIDERS: ATTEND Surgery
DX: K94.23 Gastrostomy malfunction (principal); J44.9 Chronic obstructive pulmonary disease, unspecified; I10 Essential (primary) hypertension; I25.10 Atherosclerotic heart disease of native coronary artery without angina pectoris; E78.00 Pure hypercholesterolemia, unspecified; Z86.73 Personal history of transient ischemic attack (TIA), and cerebral infarction without residual deficits; Z87.891 Personal history of nicotine dependence; K21.9 Gastro-esophageal reflux disease without esophagitis; Z88.0 Allergy status to penicillin; Z88.1 Allergy status to other antibiotic agents

== ENCOUNTER 2021-08-05 20:23 | Emergency (ER) | payer OTHER ==
[~2021-08-05] VITALS: Ht 162.5 cm; Wt 111.6 kg
[2021-08-05 20:55] LABS: HEMATOCRIT 31.7 % (37.0-47.0); MEAN CELL VOLUME 96.6 fl (81.0-99.0); MEAN CORPUSCULAR HGB 30.2 pg (27.0-31.0); MEAN CORPUSCULAR HGB CONC 31.2 g/dl (33.0-37.0); MEAN PLATELET VOLUME 9.8 fl (9.6-12.3); RED BLOOD COUNT 3.28 10*6/uL (4.10-5.10); RED CELL DISTRI WIDTH 13.8 % (0-14.5); WHITE BLOOD COUNT 10.2 10*3/uL (4.8-10.8)
[2021-08-05 21:06] LABS: PLATELET COUNT AUTOMATED 1141 10*3/uL (130-400)
[2021-08-05 21:09] LABS: ALBUMIN 2.3 gm/dl (3.1-4.5); ALKALINE PHOSPHATASE 93 U/L (45-117); BUN 21 mg/dl (7-24); CHLORIDE 113 mmol/L (98-107); CREATININE 0.81 mg/dL (0.55-1.02); LIPASE 98 U/L (73-393); POTASSIUM 3.3 mmol/L (3.5-5.1); SGOT/AST 6 IU/L (3-35); SGPT/ALT 19 U/L (12-78); SODIUM 146 mmol/L (136-145); TOTAL PROTEIN 5.8 gm/dL (6.4-8.2)
[2021-08-05 21:30] LABS: PLATELET SUFFICIENCY HIGH (NORMAL); TOTAL CELLS COUNTED 100 #CELLS
[2021-08-05 21:31] LABS: BURR CELLS FEW
[2021-08-05 22:48] LABS: BILIRUBIN Negative (Negative); BLOOD Negative (Negative); CLARITY Cloudy (Clear); COLOR Yellow (Yellow); GLUCOSE Negative (Negative); KETONE Negative (Negative); LEUKO ESTERASE 1+ (Negative); NITRITE Negative (Negative); SPECIFIC GRAVITY 1.015 (1.001-1.030); UROBILINOGEN 0.2 E.U./dl (0.0-1.0)
[2021-08-05 22:59] LABS: RBC 0-2 rbc/hpf (0-2)
[2021-08-05 23:00] LABS: BACTERIA TRACE
== END 2021-08-06 02:42 | disposition home or self-care (01) ==
LOC: ED 20:23
PROVIDERS: Hospitalist
DX: N20.0 Calculus of kidney (principal); I25.10 Atherosclerotic heart disease of native coronary artery without angina pectoris; E78.5 Hyperlipidemia, unspecified; I10 Essential (primary) hypertension; E66.9 Obesity, unspecified; F17.210 Nicotine dependence, cigarettes, uncomplicated; Z87.442 Personal history of urinary calculi; Z79.899 Other long term (current) drug therapy

== ENCOUNTER → 2021-08-13 | Outpatient (CLI) | payer OTHER | END | disposition home or self-care (01) | LOC: RAD/SH 00:05 | PROVIDERS: ATTEND Physician Assistant | DX: R13.12 Dysphagia, oropharyngeal phase (principal) ==